=== PATIENT | female | born 1985 | race Caucasian/White ===

== ENCOUNTER 2024-04-11 06:20 | Emergency (ER) | payer OTHER ==
[~2024-04-11] VITALS: Ht 175.3 cm; Wt 79.4 kg
[2024-04-11] MEDS ORDERED: UPAD15TA PO (06:46)
[2024-04-11] MEDS ORDERED: METOCLOPRAMIDE HCL 10 MG/2 ML VIAL ONE (07:16)
[2024-04-11] MEDS ORDERED: KETOROLAC TROMETHAMINE 15 MG INJ ONE (07:16)
[2024-04-11] MEDS: METOCLOPRAMIDE HCL 10 MG/2 ML VIAL IV ONE (07:27)
[2024-04-11] MEDS: IV NORMAL SALINE 1000 ML BAG IV ONE (07:27)
[2024-04-11] MEDS: KETOROLAC TROMETHAMINE 15 MG INJ IVP ONE (07:27)
[2024-04-11 07:34] LABS: BASOPHILS % (AUTO) 0.2 % (0.0-2.0); EOSINOPHILS % (AUTO) 0.5 % (0.0-7.0); HEMATOCRIT 35.6 % (31.2-41.9); HEMOGLOBIN 12.5 g/dL (10.9-14.3); LYMPHOCYTES # (AUTO) 0.2 K/uL (0.8-4.8); LYMPHOCYTES % (AUTO) 4.3 % (20.5-51.5); MEAN CORPUSCULAR HEMOGLOBIN 33.1 uug (24.7-32.8); MEAN CORPUSCULAR HGB CONC 35 g/dL (32.3-35.6); MEAN CORPUSCULAR VOLUME 94.4 fL (75.5-95.3); MONOCYTES # (AUTO) 0.3 K/uL (0.1-1.30); MONOCYTES % (AUTO) 6.9 % (0.0-11.0); NEUTROPHILS # (AUTO) 3.8 K/uL (1.8-8.9); NEUTROPHILS % (AUTO) 88.1 % (38.5-71.5); PLATELET COUNT (AUTO) 299 K/uL (179-408); RED BLOOD CELL COUNT(AUTO) 3.77 MIL/uL (3.63-4.92); RED CELL DISTRIBUTION WIDTH 14.9 % (12.3-17.7); WHITE BLOOD COUNT (AUTO) 4.3 K/uL (3.8-11.8)
[2024-04-11 07:41] LABS: DIFFERENTIAL COMMENT 1
[2024-04-11 07:43] LABS: CALCIUM 7.9 mg/dL (8.5-10.1); CARBON DIOXIDE 25 mmol/L (21-32); CHLORIDE 100 mmol/L (98-107); CREATININE 0.9 mg/dL (0.6-1.3); GLUCOSE 113 mg/dL (74-106); POTASSIUM 3.5 mmol/L (3.5-5.1); SODIUM SERUM 138 mmol/L (136-145); UREA NITROGEN, BLOOD 16 mg/dL (7-18)
[2024-04-11 07:56] LABS: ALANINE AMINOTRANSFERASE 23 U/L (14-59); ALBUMIN 3.8 g/dL (3.4-5.0); ALKALINE PHOSPHATASE 43 U/L (50-136); ASPARTATE AMINOTRANSFERASE 17 U/L (15-37); BILIRUBIN,DIRECT 0.2 mg/dL (0.0-0.2); BILIRUBIN,TOTAL 0.8 mg/dL (0.2-1.0); NT-PRO BNP 132 pg/mL (0-125); TOTAL PROTEIN, SERUM 6.7 g/dL (6.4-8.2)
[2024-04-11 08:12] LABS: PREGNANCY TEST SERUM QUAN < 1 miul/L (0-6)
[2024-04-11 08:15] LABS: LIPASE 31 U/L (16-77)
[2024-04-11] MEDS ORDERED: METO-295 PO (08:50)
[2024-04-11] MEDS ORDERED: ONDA4TAB5 PO (08:50)
[2024-04-11 09:10] VITALS: BP 115/67; O2SAT 98
== END 2024-04-11 09:12 | disposition home or self-care (01) ==
LOC: ER 06:24
DX: E86.0 Dehydration (principal); R11.2 Nausea with vomiting, unspecified; R19.7 Diarrhea, unspecified; M79.10 Myalgia, unspecified site; R53.81 Other malaise; R68.83 Chills (without fever); R10.2 Pelvic and perineal pain; Z88.8 Allergy status to other drugs, medicaments and biological substances
CPT/HCPCS: 99284; 96374; 96361; 96375; 80076; 80048; 83880; 83690; 85025; 84145; 85730; 87040 ×2; 84484; 84702; 36415; 83605; J1885; J2765; J7040 ×2; A4606; A4663